=== PATIENT | female | born 1995 | race Caucasian/White ===

== ENCOUNTER 2019-04-24 18:56 | Inpatient (IN) | payer MEDICAID ==
[~2019-04-24] VITALS: Ht 162.6 cm; Wt 75.6 kg
[2019-04-24] MEDS ORDERED: LACTATED RINGERS 1,000 ML IV SCH (20:45)
[2019-04-24] MEDS ORDERED: CALCIUM CARBONATE 500 MG TAB.CHEW PO PRN (21:00)
[2019-04-24] MEDS ORDERED: PLEASE ENTER ALLERGIES MC SCH (21:00)
[2019-04-24 21:19] LABS: BASOPHILS # (AUTO) 0.02 x10^3/uL (0-0.1); BASOPHILS % (AUTO) 0 % (0-1); EOSINOPHILS % (AUTO) 0 % (1-7); LYMPHOCYTES # (AUTO) 0.92 x10^3/uL (1-3.4); LYMPHOCYTES % (AUTO) 12 % (22-44); MD NO; MEAN CORPUSCULAR HEMOGLOBIN 27.2 pg (27.0-34.8); MEAN CORPUSCULAR HGB CONC 32.7 g/dL (32.4-35.8); MEAN CORPUSCULAR VOLUME 83.2 fL (80-100); MEAN PLATELET VOLUME 8.2 fL (7.4-10.4); MONOCYTES # (AUTO) 0.08 x10^3/uL (0.2-0.8); MONOCYTES % (AUTO) 1 % (2-9); NEUTROPHILS # (AUTO) 6.85 x10^3/uL (1.8-6.8); NEUTROPHILS % (AUTO) 87 % (42-75); PLATELET COUNT 256 x10^3/uL (130-400); RED BLOOD COUNT 4.48 x10^6/uL (3.82-5.3); RED CELL DISTRIBUTION WIDTH 14.5 % (9.6-15.2)
[2019-04-24 21:27] LABS: ALANINE AMINOTRANSFERASE 14 U/L (12-78); ALBUMIN 2.2 g/dL (3.4-5.0); ANION GAP 8 mmol/L (5-15); CALCIUM 8.4 mg/dL (8.5-10.1); CHLORIDE 109 mmol/L (98-107); CREATININE 0.55 mg/dL (0.55-1.02)
[2019-04-24 21:29] LABS: ALKALINE PHOSPHATASE 168 U/L (45-117); BILIRUBIN,TOTAL 0.2 mg/dL (0.2-1.0); TOTAL PROTEIN 6.5 g/dL (6.4-8.2)
[2019-04-24 21:44] LABS: MICROSCOPIC INDICATED
[2019-04-24] MEDS ORDERED: LABETALOL 100 MG TABLET ONE (21:47)
[2019-04-24] MEDS: LABETALOL 100 MG TABLET PO SCH (21:49)
[2019-04-24] MEDS ORDERED: FLU VACC QS2019-20 36MOS UP/PF 0.5 ML IM-VACC ONE (23:45)
[2019-04-25] MEDS ORDERED: PRENATAL VIT/IRON/FA 1 EACH TABLET ONE (10:11)
[2019-04-25] MEDS ORDERED: LABETALOL 100 MG TABLET ONE ×2 (10:11→21:49)
[2019-04-25] MEDS: PRENATAL VIT/IRON/FA 1 EACH TABLET PO SCH (10:14)
[2019-04-25] MEDS: SODIUM CHLORIDE FLUSH 3ML SYRINGE IVF SCH ×2 (10:15→22:00)
[2019-04-25] MEDS: LABETALOL 100 MG TABLET PO SCH ×2 (10:15→21:52)
[2019-04-25] MEDS ORDERED: BETAMETHASONE 6 MG/ML, 5ML IM ONE ×2 (15:00→15:08)
[2019-04-25 20:00] VITALS: BP 139/86
[2019-04-25] MEDS ORDERED: ACETAMINOPHEN 325 MG TABLET PO PRN ×2 (23:30)
[2019-04-26 00:06] VITALS: BP 126/74
[2019-04-26 06:09] LABS: MEAN CORPUSCULAR HEMOGLOBIN 27.1 pg (27.0-34.8); MEAN CORPUSCULAR HGB CONC 32.4 g/dL (32.4-35.8); MEAN CORPUSCULAR VOLUME 83.7 fL (80-100); MEAN PLATELET VOLUME 8.1 fL (7.4-10.4); PLATELET COUNT 257 x10^3/uL (130-400); RED BLOOD COUNT 4.33 x10^6/uL (3.82-5.3)
[2019-04-26 06:22] LABS: ALBUMIN 2.1 g/dL (3.4-5.0); ANION GAP 9 mmol/L (5-15); CALCIUM 8.4 mg/dL (8.5-10.1); CHLORIDE 107 mmol/L (98-107)
[2019-04-26 06:27] LABS: ALANINE AMINOTRANSFERASE 14 U/L (12-78); ALKALINE PHOSPHATASE 156 U/L (45-117); BILIRUBIN,TOTAL 0.2 mg/dL (0.2-1.0); CREATININE 0.53 mg/dL (0.55-1.02); TOTAL PROTEIN 6.3 g/dL (6.4-8.2)
[2019-04-26] MEDS ORDERED: PRENATAL VIT/IRON/FA 1 EACH TABLET ONE (09:38)
[2019-04-26] MEDS ORDERED: LABETALOL 100 MG TABLET ONE ×2 (09:38→21:52)
[2019-04-26] MEDS: PRENATAL VIT/IRON/FA 1 EACH TABLET PO SCH (09:40)
[2019-04-26] MEDS: LABETALOL 100 MG TABLET PO SCH ×2 (09:41→21:55)
[2019-04-26] MEDS: SODIUM CHLORIDE FLUSH 3ML SYRINGE IVF SCH (09:42)
[2019-04-26] MEDS ORDERED: D5%-LACTATED RINGERS 1,000 ML IV SCH ×2 (13:30→13:36)
[2019-04-26] MEDS ORDERED: MAGNESIUM SULF. PMX 20GM/500ML 500 ML IV SCH (14:13)
[2019-04-26] MEDS: MAGNESIUM SULF. PMX 20GM/500ML 500 ML IV SCH ×3 (14:23→22:02)
[2019-04-26] MEDS ORDERED: MAGNESIUM SULFATE PMX 4GM/100M 100 ML IVPB ONE (14:30)
[2019-04-26] MEDS ORDERED: MAGNESIUM SULFATE PMX 2GM/50ML 50 ML IVPB ONE (14:30)
[2019-04-26 14:42] LABS: BASOPHILS # (AUTO) 0.03 x10^3/uL (0-0.1); BASOPHILS % (AUTO) 0 % (0-1); EOSINOPHILS % (AUTO) 0 % (1-7); LYMPHOCYTES # (AUTO) 1.39 x10^3/uL (1-3.4); LYMPHOCYTES % (AUTO) 16 % (22-44); MD NO; MEAN CORPUSCULAR HEMOGLOBIN 27.3 pg (27.0-34.8); MEAN CORPUSCULAR HGB CONC 32.6 g/dL (32.4-35.8); MEAN CORPUSCULAR VOLUME 83.6 fL (80-100); MONOCYTES # (AUTO) 0.75 x10^3/uL (0.2-0.8); MONOCYTES % (AUTO) 9 % (2-9); NEUTROPHILS # (AUTO) 6.51 x10^3/uL (1.8-6.8); NEUTROPHILS % (AUTO) 75 % (42-75); PLATELET COUNT 242 x10^3/uL (130-400); RED BLOOD COUNT 4.14 x10^6/uL (3.82-5.3); RED CELL DISTRIBUTION WIDTH 15.1 % (9.6-15.2)
[2019-04-26 14:49] LABS: ALANINE AMINOTRANSFERASE 10 U/L (12-78); ANION GAP 9 mmol/L (5-15); CALCIUM 8.6 mg/dL (8.5-10.1); CHLORIDE 107 mmol/L (98-107); CREATININE 0.53 mg/dL (0.55-1.02)
[2019-04-26 14:55] LABS: ALKALINE PHOSPHATASE 153 U/L (45-117); BILIRUBIN,TOTAL 0.2 mg/dL (0.2-1.0); TOTAL PROTEIN 5.7 g/dL (6.4-8.2)
[2019-04-26] MEDS ORDERED: OXYTOCIN 10 UNITS/ML, 1ML ONE (14:56)
[2019-04-26] MEDS ORDERED: PHENYLEPHRINE 10 MG/ML ONE (14:56)
[2019-04-26] MEDS ORDERED: ONDANSETRON 2MG/ML, 2ML ONE ×2 (14:56→17:04)
[2019-04-26] MEDS ORDERED: EPHEDRINE 50 MG/ML, 1ML ONE (14:56)
[2019-04-26] MEDS ORDERED: CEFAZOLIN 1,000 MG ONE (14:56)
[2019-04-26] MEDS ORDERED: DEXAMETHASONE 4 MG/ML, 1ML ONE (14:56)
[2019-04-26] MEDS ORDERED: FENTANYL PF 100 MCG/2ML ONE (14:56)
[2019-04-26] MEDS ORDERED: KETOROLAC 30 MG/1 ML ONE (14:56)
[2019-04-26] MEDS ORDERED: ONDANSETRON 2MG/ML, 2ML IVPush PRN (15:00)
[2019-04-26] MEDS ORDERED: HYDROcodone/APAP 7.5-325MG/15ML UDC PO PRN (15:00)
[2019-04-26] MEDS ORDERED: METOPROLOL 1 MG/ML, 5ML IV PRN (15:00)
[2019-04-26] MEDS ORDERED: HYDROmorphone 1 MG/ML, 1ML INJ IVPush PRN (15:00)
[2019-04-26] MEDS ORDERED: hydrALAzine 20 MG/ML, 1ML IV PRN (15:00)
[2019-04-26] MEDS ORDERED: LABETALOL 5MG/ML, 20ML IV PRN (15:00)
[2019-04-26] MEDS ORDERED: MIDAZOLAM 1 MG/ML, 2ML IV PRN (15:00)
[2019-04-26] MEDS ORDERED: FENTANYL PF 100 MCG/2ML IV PRN (15:00)
[2019-04-26] MEDS ORDERED: METOCLOPRAMIDE 5 MG/ML, 2ML IV ONE (15:00)
[2019-04-26] MEDS ORDERED: ALBUTEROL SULFATE 2.5 MG/3 ML NPPB PRN (15:00)
[2019-04-26] MEDS ORDERED: EPHEDRINE 50 MG/ML, 1ML IVPush PRN (15:00)
[2019-04-26] MEDS ORDERED: LACTATED RINGERS 1,000 ML IVBOLUS ONE (15:00)
[2019-04-26] MEDS ORDERED: SODIUM CITRATE/CITRIC ACID 30 ML UDC PO ONE (15:00)
[2019-04-26] MEDS ORDERED: OXYcodone 5 MG/5 ML ORAL.SOL UDC PO PRN (15:00)
[2019-04-26] MEDS ORDERED: PROMETHAZINE 25 MG/ML, 1ML IV PRN (15:00)
[2019-04-26] MEDS ORDERED: MEPERIDINE/PF 25MG/0.5ML IVPush PRN (15:00)
[2019-04-26] MEDS ORDERED: METOCLOPRAMIDE 5 MG/ML, 2ML ONE (15:03)
[2019-04-26] MEDS ORDERED: SODIUM CITRATE/CITRIC ACID 30 ML UDC ONE (15:03)
[2019-04-26] MEDS ORDERED: HYDROmorphone 2 MG/ML, 1ML ONE (15:43)
[2019-04-26] MEDS ORDERED: LACTATED RINGERS 1,000 ML IV SCH (16:31)
[2019-04-26] MEDS ORDERED: OXYTOCIN 30U/ 0.9% NaCL 500ML 500 ML IV SCH (16:31)
[2019-04-26] MEDS ORDERED: OXYcodone 5 MG/5 ML ORAL.SOL UDC ONE (16:39)
[2019-04-26 16:55] LABS: BASOPHILS # (AUTO) 0.01 x10^3/uL (0-0.1); BASOPHILS % (AUTO) 0 % (0-1); EOSINOPHILS % (AUTO) 0 % (1-7); LYMPHOCYTES # (AUTO) 1.09 x10^3/uL (1-3.4); LYMPHOCYTES % (AUTO) 9 % (22-44); MD NO; MEAN CORPUSCULAR HEMOGLOBIN 27.3 pg (27.0-34.8); MEAN CORPUSCULAR HGB CONC 32.5 g/dL (32.4-35.8); MEAN CORPUSCULAR VOLUME 83.8 fL (80-100); MEAN PLATELET VOLUME 7.9 fL (7.4-10.4); MONOCYTES # (AUTO) 0.73 x10^3/uL (0.2-0.8); MONOCYTES % (AUTO) 6 % (2-9); NEUTROPHILS # (AUTO) 10.14 x10^3/uL (1.8-6.8); NEUTROPHILS % (AUTO) 85 % (42-75); PLATELET COUNT 200 x10^3/uL (130-400); RED BLOOD COUNT 3.58 x10^6/uL (3.82-5.3); RED CELL DISTRIBUTION WIDTH 15.2 % (9.6-15.2)
[2019-04-26] MEDS ORDERED: ONDANSETRON 2MG/ML, 2ML IV PRN (17:00)
[2019-04-26] MEDS ORDERED: CALCIUM CARBONATE 500 MG TAB.CHEW PO PRN (17:00)
[2019-04-26] MEDS ORDERED: MISOPROSTOL 200 MCG TABLET PR PRN (17:00)
[2019-04-26] MEDS ORDERED: OXYcodone IR 5MG TABLET PO PRN (17:00)
[2019-04-26] MEDS ORDERED: CARBOPROST TROMETHAMINE 250 MCG/ML, 1ML IM PRN (17:00)
[2019-04-26] MEDS ORDERED: ACETAMINOPHEN 325 MG TABLET PO PRN (17:00)
[2019-04-26] MEDS ORDERED: BISACODYL 10 MG SUPP PR PRN (17:00)
[2019-04-26 17:03] LABS: INTERNATIONAL NORMALIZED RATIO 0.93 (0.93-1.1); PROTHROMBIN TIME 9.8 Seconds (9.6-11.5)
[2019-04-26 17:05] LABS: ALANINE AMINOTRANSFERASE 11 U/L (12-78); ANION GAP 9 mmol/L (5-15); CALCIUM 8.2 mg/dL (8.5-10.1); CHLORIDE 108 mmol/L (98-107)
[2019-04-26 17:07] LABS: ALKALINE PHOSPHATASE 133 U/L (45-117); BILIRUBIN,TOTAL 0.2 mg/dL (0.2-1.0); TOTAL PROTEIN 5.5 g/dL (6.4-8.2)
[2019-04-26] MEDS: LACTATED RINGERS 1,000 ML IV SCH (23:10)
[2019-04-26] MEDS ORDERED: OXYcodone IR 5MG TABLET ONE (23:20)
[2019-04-26] MEDS: OXYcodone IR 5MG TABLET PO PRN (23:22)
[2019-04-27] MEDS: LACTATED RINGERS 1,000 ML IV SCH ×3 (02:31→22:31)
[2019-04-27] MEDS ORDERED: OXYcodone IR 5MG TABLET ONE ×2 (04:49→11:03)
[2019-04-27] MEDS: OXYcodone IR 5MG TABLET PO PRN ×3 (04:52→17:48)
[2019-04-27 05:32] LABS: BASOPHILS # (AUTO) 0.02 x10^3/uL (0-0.1); BASOPHILS % (AUTO) 0 % (0-1); EOSINOPHILS # (AUTO) 0.13 x10^3/uL (0-0.4); EOSINOPHILS % (AUTO) 1 % (1-7); LYMPHOCYTES # (AUTO) 1.45 x10^3/uL (1-3.4); LYMPHOCYTES % (AUTO) 13 % (22-44); MD NO; MEAN CORPUSCULAR HEMOGLOBIN 27.7 pg (27.0-34.8); MEAN CORPUSCULAR HGB CONC 32.9 g/dL (32.4-35.8); MEAN CORPUSCULAR VOLUME 84.2 fL (80-100); MEAN PLATELET VOLUME 7.9 fL (7.4-10.4); MONOCYTES % (AUTO) 7 % (2-9); NEUTROPHILS # (AUTO) 8.83 x10^3/uL (1.8-6.8); NEUTROPHILS % (AUTO) 79 % (42-75); PLATELET COUNT 184 x10^3/uL (130-400); RED BLOOD COUNT 3.59 x10^6/uL (3.82-5.3); RED CELL DISTRIBUTION WIDTH 15.6 % (9.6-15.2)
[2019-04-27 05:38] LABS: ALBUMIN 1.8 g/dL (3.4-5.0); ANION GAP 10 mmol/L (5-15); CALCIUM 6.6 mg/dL (8.5-10.1); CHLORIDE 103 mmol/L (98-107)
[2019-04-27 05:42] LABS: ALANINE AMINOTRANSFERASE 16 U/L (12-78); ALKALINE PHOSPHATASE 145 U/L (45-117); BILIRUBIN,TOTAL 0.2 mg/dL (0.2-1.0); CREATININE 0.48 mg/dL (0.55-1.02); TOTAL PROTEIN 5.2 g/dL (6.4-8.2)
[2019-04-27] MEDS: MAGNESIUM SULF. PMX 20GM/500ML 500 ML IV SCH (05:55)
[2019-04-27 08:00] VITALS: BP 122/82
[2019-04-27] MEDS ORDERED: DOCUSATE 100 MG CAPSULE ONE (08:23)
[2019-04-27] MEDS ORDERED: PRENATAL VIT/IRON/FA 1 EACH TABLET ONE (08:23)
[2019-04-27] MEDS ORDERED: LABETALOL 100 MG TABLET ONE (08:24)
[2019-04-27] MEDS: DOCUSATE 100 MG CAPSULE PO PRN (08:36)
[2019-04-27] MEDS: LABETALOL 100 MG TABLET PO SCH ×2 (08:36→21:09)
[2019-04-27] MEDS: PRENATAL VIT/IRON/FA 1 EACH TABLET PO SCH (08:36)
[2019-04-27] MEDS ORDERED: MAGNESIUM SULF. PMX 20GM/500ML 500 ML IV SCH ×2 (12:49→14:13)
[2019-04-27 19:15] VITALS: BP 125/86
[2019-04-27] MEDS: SIMETHICONE 80 MG CHEW TAB PO PRN (21:08)
[2019-04-27 23:51] VITALS: BP 108/70
[2019-04-28] MEDS: SIMETHICONE 80 MG CHEW TAB PO PRN ×2 (00:14→19:20)
[2019-04-28] MEDS: OXYcodone IR 5MG TABLET PO PRN ×2 (00:14→14:12)
[2019-04-28 04:00] VITALS: BP 116/78
[2019-04-28 07:15] VITALS: BP 115/75
[2019-04-28] MEDS: LACTATED RINGERS 1,000 ML IV SCH ×2 (08:31→18:31)
[2019-04-28] MEDS: LABETALOL 100 MG TABLET PO SCH ×2 (09:00→19:20)
[2019-04-28] MEDS: DOCUSATE 100 MG CAPSULE PO PRN ×2 (10:10→19:20)
[2019-04-28] MEDS: PRENATAL VIT/IRON/FA 1 EACH TABLET PO SCH (10:10)
[2019-04-28 12:10] VITALS: BP 107/71
[2019-04-28 17:45] VITALS: BP 135/94
[2019-04-28 20:00] VITALS: BP 139/91
[2019-04-29] VITALS (9 sets, daily range): BP systolic 107–160; BP diastolic 64–108
[2019-04-29] MEDS: SIMETHICONE 80 MG CHEW TAB PO PRN (01:10)
[2019-04-29 03:19] LABS: BASOPHILS # (AUTO) 0.04 x10^3/uL (0-0.1); BASOPHILS % (AUTO) 1 % (0-1); EOSINOPHILS # (AUTO) 0.01 x10^3/uL (0-0.4); EOSINOPHILS % (AUTO) 0 % (1-7); LYMPHOCYTES # (AUTO) 1.96 x10^3/uL (1-3.4); LYMPHOCYTES % (AUTO) 21 % (22-44); MD NO; MEAN CORPUSCULAR HEMOGLOBIN 27.4 pg (27.0-34.8); MEAN CORPUSCULAR HGB CONC 32.6 g/dL (32.4-35.8); MONOCYTES # (AUTO) 0.41 x10^3/uL (0.2-0.8); MONOCYTES % (AUTO) 4 % (2-9); NEUTROPHILS # (AUTO) 6.81 x10^3/uL (1.8-6.8); NEUTROPHILS % (AUTO) 74 % (42-75); PLATELET COUNT 217 x10^3/uL (130-400); RED BLOOD COUNT 3.75 x10^6/uL (3.82-5.3); RED CELL DISTRIBUTION WIDTH 15.6 % (9.6-15.2)
[2019-04-29 03:28] LABS: ALANINE AMINOTRANSFERASE 21 U/L (12-78); ANION GAP 9 mmol/L (5-15); CHLORIDE 102 mmol/L (98-107)
[2019-04-29 03:31] LABS: ALKALINE PHOSPHATASE 202 U/L (45-117); BILIRUBIN,TOTAL 0.2 mg/dL (0.2-1.0); CREATININE 0.48 mg/dL (0.55-1.02); TOTAL PROTEIN 5.8 g/dL (6.4-8.2)
[2019-04-29] MEDS: LACTATED RINGERS 1,000 ML IV SCH ×3 (04:14→20:14)
[2019-04-29] MEDS ORDERED: LABETALOL 100 MG TABLET ONE (07:08)
[2019-04-29] MEDS: LABETALOL 100 MG TABLET PO SCH ×2 (07:14→21:16)
[2019-04-29] MEDS: PRENATAL VIT/IRON/FA 1 EACH TABLET PO SCH (08:25)
[2019-04-29] MEDS: FERROUS GLUCONATE 324 MG TABLET PO SCH (08:29)
[2019-04-29] MEDS: DOCUSATE 100 MG CAPSULE PO PRN ×2 (09:34→21:16)
[2019-04-30 00:17] VITALS: BP 142/89
[2019-04-30] MEDS: LACTATED RINGERS 1,000 ML IV SCH (04:14)
[2019-04-30 04:30] VITALS: BP 142/90
[2019-04-30 06:49] LABS: ALANINE AMINOTRANSFERASE 32 U/L (12-78); ALBUMIN 2.1 g/dL (3.4-5.0); ANION GAP 9 mmol/L (5-15); CALCIUM 8.5 mg/dL (8.5-10.1); CHLORIDE 102 mmol/L (98-107); CREATININE 0.43 mg/dL (0.55-1.02)
[2019-04-30 06:52] LABS: ALKALINE PHOSPHATASE 193 U/L (45-117); BILIRUBIN,TOTAL 0.2 mg/dL (0.2-1.0); TOTAL PROTEIN 6.2 g/dL (6.4-8.2)
[2019-04-30 08:00] VITALS: BP 130/89
[2019-04-30] MEDS: PRENATAL VIT/IRON/FA 1 EACH TABLET PO SCH (09:51)
[2019-04-30] MEDS: DOCUSATE 100 MG CAPSULE PO PRN (09:51)
[2019-04-30] MEDS: FERROUS GLUCONATE 324 MG TABLET PO SCH (09:51)
[2019-04-30] MEDS: LABETALOL 100 MG TABLET PO SCH (09:51)
[2019-04-30] MEDS ORDERED: FERR324T18 PO (16:25)
== END 2019-04-30 16:46 | disposition home or self-care (01) | DRG 540 ==
LOC: LDIP 20:01 → 2NW 04-27 17:55 → 2NE 04-29 03:15 → 2NW 04-29 09:20
PROVIDERS: ADMIT Obstetrics & Gynecology Maternal & Fetal Medicine; ATTEND Obstetrics & Gynecology Maternal & Fetal Medicine
PROC: 3E02340 Introduction of Influenza Vaccine into Muscle, Percutaneous Approach (ICD-10-PCS; 2019-04-25)
PROC: 10D00Z1 Extraction of Products of Conception, Low, Open Approach (ICD-10-PCS; principal; 2019-04-26)
PROC: 30233K1 Transfusion of Nonautologous Frozen Plasma into Peripheral Vein, Percutaneous Approach (ICD-10-PCS; 2019-04-26)
DX: O14.14 Severe pre-eclampsia complicating childbirth (principal); D68.8 Other specified coagulation defects; O45.8X3 Other premature separation of placenta, third trimester; O99.13 Other diseases of the blood and blood-forming organs and certain disorders involving the immune mechanism complicating the puerperium; O99.43 Diseases of the circulatory system complicating the puerperium; I16.1 Hypertensive emergency; O34.03 Maternal care for unspecified congenital malformation of uterus, third trimester; O76 Abnormality in fetal heart rate and rhythm complicating labor and delivery; O69.81X0 Labor and delivery complicated by cord around neck, without compression, not applicable or unspecified; O77.0 Labor and delivery complicated by meconium in amniotic fluid; Z37.0 Single live birth; Z3A.29 29 weeks gestation of pregnancy; Q51.810 Arcuate uterus; O99.03 Anemia complicating the puerperium; D50.0 Iron deficiency anemia secondary to blood loss (chronic); Z23 Encounter for immunization
CPT/HCPCS: 36415; 80053; 81001; 82570; 82803; 82962; 83735; 84156; 84550; 85025; 85027; 85384; 85610; 85730; 86147; 86592; 86850; 86900; 86923; 88307; 90686; G0378; J0690; J0702; J1100; J1170; J1885; J2405; J2550; J3010; J2370; J2590; J2765; J3475; J7120; J7121; P9017